=== PATIENT | male | born 1970 | race Caucasian/White ===

== ENCOUNTER 2016-08-30 23:34 | Emergency (ER) | payer SELFPAY ==
[~2016-08-30 23:34] MED LIST: Iopamidol 370 76% 100 ML VIAL ONE
[2016-08-31 00:08] LABS: #Lymphocytes 0.7 thou/uL (1.20-3.40); #Monocytes 0.5 thou/uL (0.11-0.59); #Neutrophils 17.2 thou/uL (1.40-6.50); %Basophils 0.2 % (0.0-1.0); %Monocytes 2.8 % (0.0-10.0); Hemoglobin 15.5 g/dL (14.0-18.0); Mean Corpuscular HGB CONC 33.3 g/dL (32.0-36.0); Mean Corpuscular Hemoglobin 29.1 pg (27.0-31.0); Mean Corpuscular Volume 87.5 fl (80.0-94.0); Platelet Count 195 thou/uL (130-400); RBC Distribution Width 12.2 % (11.5-14.5); Red Blood Cell (RBC) Count 5.33 mill/uL (4.70-6.10); White Blood Cell (WBC) Count 18.5 thou/uL (4.8-10.8)
[2016-08-31] MEDS ORDERED: Thiamine HCl 200 MG/2 ML VIAL ONE (00:13)
[2016-08-31] MEDS ORDERED: Ondansetron HCl/PF 4 MG/2 ML Vial ONE (00:14)
[2016-08-31] MEDS ORDERED: Pantoprazole 40 MG VIAL ONE (00:14)
[2016-08-31 00:27] LABS: ALT (SGPT) 18 U/L (0-55); AST (SGOT) 33 U/L (5-34); Albumin 4.2 g/dL (3.5-5.0); Alkaline Phosphatase 50 U/L (40-150); Amylase 210 U/L (25-125); Anion Gap 36 mmol/L (10-20); BUN (Urea Nitrogen) 17 mg/dL (8.9-20.6); Bilirubin, Total 0.7 mg/dL (0.2-1.2); Calc. Creatinine Clearance 0 mL/min (70-130); Calcium 8.6 mg/dL (7.8-10.44); Chloride 100 mmol/L (98-107); Estimated GFR-MDRD 73; Globulin 3.2 g/dL (2.4-3.5); Glucose 97 mg/dL (70-105); Lipase 583 U/L (8-78); Protein, Total 7.4 g/dL (6.0-8.3); Sodium 140 mmol/L (136-145)
[2016-08-31 00:28] LABS: CKMB 0.8 ng/mL (0-6.6); Carbon Dioxide 8 mmol/L (22-29); Troponin I Less than 0.010 ng/mL (< 0.028)
[2016-08-31 00:29] LABS: INR-International Normal Ratio 1.1; PTT 28.2 SEC (22.9-36.1); Prothrombin Time 14.8 SEC (12.0-14.7)
[2016-08-31 01:18] LABS: Bilirubin Negative (Negative); Blood, Urine Negative (Negative); Clarity Clear (Clear); Glucose, Urine (Dipstick) Negative (Negative); Leukocyte Negative (Negative); Nitrite Negative (Negative); Protein, Urine (Dipstick) Negative (Neg-Trace); Specific Gravity, Urine 1.025 (1.005-1.030); Urobilinogen 0.2 mg/dL (0.2-1.0)
[2016-08-31 01:20] LABS: Actual Bicarbonate (HCO3v) 19 mEq/L (22-26); Base Excess -5.4 mEq/L (0 (+/- 2.5))
[2016-08-31 01:21] LABS: Hemoglobin (Hb) 14.5 g/dL (13.2-17.3)
--- NOTE | 2016-08-31 08:28 | CT ---
PRELIMINARY REPORT/[facility]/EMERGENCY AFTER HOURS PROCEDURE: EXAM: CT Abdomen and Pelvis With Intravenous Contrast CLINICAL HISTORY: 45 years old, male; Pain and signs and symptoms; Nausea and vomiting; Abdominal pain; Generalized; P atient HX: Abd pain with n/v since sat morning; Worsening pain with no po tolerance. History include s gastrointestinal disease, pancreatitis. Elevated wbc (18.5). Elevated lipase \T\ amylase; Addition al info: Ermd ordered iv only. Other past medical history includes pulmonary disease, asthma, chroni c obstructive pulmonary disease. TECHNIQUE: Axial computed tomography images of the abdomen and pelvis with intravenous contrast. This CT exam w as performed using one or more of the following dose reduction techniques: automated exposure contro l, adjustment of the mA and/or kV according to patient size, and/or use of iterative reconstruction technique. Coronal and sagittal reformatted images were created and reviewed. CONTRAST: 96 mL of ISOVUE 370 administered intravenously. EXAM DATE/TIME: 08/31/2016 12:13 AM COMPARISON: No relevant prior studies available. FINDINGS: ABDOMEN: No suspicious mass or airspace process in the visualized lung bases. Liver may be fatty infiltrated relative to the spleen. No focal lesion. Spleen, gallbladder adrenals and kidneys are unremarkable. Pancreas is abnormal. Marked peripancreatic inflammatory change and non-organized fluid is present. No evidence of pancreatic necrosis or organized fluid collection and no evidence of splenic vein thr ombosis. No evidence of small bowel obstruction. No pneumoperitoneum. PELVIS: Normal caliber appendix is identified, with no adjacent inflammation. No evidence of acute diverticulitis. Bladder appears normal. Degenerative changes are seen in the lumbar spine with disc height loss. Transitional vertebral segment is present at the lumbosacral junction. Old, healed left rib fractures are present. IMPRESSION: Findings are suggestive of acute pancreatitis without evidence of pseudocyst, pancreatic necrosis or other complication Thank you for allowing us to participate in the care of your patient. Dictated and Authenticated by: Fredo Rodriguez MD 08/31/2016 12:37 AM Central Time ([place] \T\ [place]) FINAL REPORT CT ABDOMEN AND PELVIS WITH IV CONTRAST: Date: 08/30/16 IMPRESSION: I agree with the preliminary report given by Dr. Fredo Rodriguez of [facility]. POS: [facility]
== END 2016-08-31 02:05 | disposition short-term general hospital (02) ==
LOC: NAV ERS 23:34
DX: K85.90 Acute pancreatitis without necrosis or infection, unspecified (principal); J45.909 Unspecified asthma, uncomplicated; J44.9 Chronic obstructive pulmonary disease, unspecified; F32.9 Major depressive disorder, single episode, unspecified; F17.210 Nicotine dependence, cigarettes, uncomplicated
CPT/HCPCS: 74177; 80053; 81003; 82150; 82553; 82805; 83605; 83690; 84484; 85025; 85610; 85730; 87040; 93005; 96361; 96374; 96375; 96376; C9113; J1170; J2405; J3411